=== PATIENT | female | born 1930 | race Caucasian/White ===

== ENCOUNTER 2016-04-07 14:47 | Outpatient (CLI) | payer OTHER ==
--- NOTE | 2016-04-07 16:21 | DIAGNOSTIC IMAGING REPORT ---
PROCEDURE: XR WRIST MIN 3 VIEWS - RIGHT INDICATION: FALL TECHNIQUE: Four views of the right wrist. COMPARISON: None. FINDINGS: Normal mineralization. No fractures. Normal osseous alignment. No suspicious soft-tissue calcification or radiodense foreign bodies. 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 IMPRESSION: 1. Intact right wrist.
--- NOTE | 2016-04-07 16:22 | DIAGNOSTIC IMAGING REPORT ---
PROCEDURE: XR KNEE 4 VIEWS - RIGHT INDICATION: FALL TECHNIQUE: Four views. COMPARISON: None. FINDINGS: Osseous structures and joint spaces are normal. IMPRESSION: 1. Normal right knee.
--- NOTE | 2016-04-07 16:49 | DIAGNOSTIC IMAGING REPORT ---
PROCEDURE: XR ELBOW 3 OR 4 VIEWS - RIGHT INDICATION: FALL TECHNIQUE: Four views. COMPARISON: None. FINDINGS: There is an impacted fracture involving the radial head. This is along the lateral surface of the radial head. There is also a small joint effusion. IMPRESSION: 1. Impacted radial head fracture.
== END 2016-04-07 23:00 ==
LOC: XR SRH 14:47
DX: S52.124A Nondisplaced fracture of head of right radius, initial encounter for closed fracture (principal); M25.561 Pain in right knee; M25.531 Pain in right wrist

== ENCOUNTER 2016-04-07 17:44 | Emergency (ER) | payer OTHER ==
--- NOTE | 2016-04-07 19:07 | ED CLINICAL REPORT ---
Clinical Report - Physicians/Mid Levels [facility] [address] [place] [address] 04/07/2016 17:44 [id number] Arrived- By private vehicle. Historian- patient. HISTORY OF PRESENT ILLNESS Chief Complaint: Injury to the right elbow. The injury happened today. Occurred at home. Fell (Twisted ankle while walking). Patient is experiencing moderate pain. Patient denies injury to the head or neck. No other injury. ( reports minor injury to the right knee And wrist. Reports the main area of discomfort is in the elbow. Reports no loss of consciousness, injury to the head, neck, chest, abdomen pelvis, back, or other extremities. Tetanus is up-to-date). REVIEW OF SYSTEMS The patient sustained a laceration. She has had swelling. No tingling, numbness or weakness. All systems otherwise negative, except as recorded above. PAST HISTORY See nurses notes. Medications: Albuterol Sulfate Inhalation. Furosemide Oral uncertain, daily. Allergies: No Known Drug Allergy. SOCIAL HISTORY Never smoker. Alcohol use; consumes beer occasionally. No drug use. Is a local resident. ADDITIONAL NOTES The nursing notes have been reviewed. PHYSICAL EXAM Vital Signs: 04/07/2016 18:06 BP: 159/60. HR: 105. RR: 20. O2 saturation: 89%. Temp: 99.1 F. Pain level now: 9/10. Hypertensive. Oxygen saturation normal. Appearance: Alert. Oriented X3. No acute distress. Head: Head atraumatic. Eyes: Pupils equal, round and reactive to light. Eyes normal inspection. ENT: Ears normal. Nose normal. Pharynx normal. Neck: Normal inspection. Neck supple. No decreased ROM in the neck. No vertebral tenderness. CVS: Normal heart rate and rhythm. Heart sounds normal. Pulses normal. Respiratory: No respiratory distress. Breath sounds normal. Chest nontender. Abdomen: No visible injury. Soft and nontender. Bowel sounds normal. No mass. Back: Normal inspection. No tenderness. ROM normal. Skin: Skin intact. Skin warm and dry. Normal skin color. Normal skin turgor. Extremities: (patient with ecchymosis and mild swelling to the right elbow. The patient otherwise has good range of motion with the elbow and does not have any significant pain with pronation or supination No crepitus. No bony abdomen obese. superficial skin tear to the elbow as well as wrist. The wrist has a Steri-Strips applied to the wound. Wounds are otherwise clean dry and intact. No active bleeding. No tenderness to the hand, forearm, arm, shoulder, neck. Compartments are soft. Radial pulses 2+ and symmetrical to the contralateral side. Sensation grossly intact.). PROGRESS AND PROCEDURES Course of Care: The patient is an 85-year-old female who sustained a mechanical ground-level fall earlier today for reevaluation of her right elbow. Patient was told by her clinician to return to the emergency department for elbow fracture. On examination, patient has a skin tears which do not appear to be closable with sutures or Steri-Strips. She also has a another skin tear at the wrist. Those have been closed with Steri-Strips. In regards to the fracture, I am able to appreciate a small radial head fracture and is confirmed with the radiologist read. I discussion with orthopedic surgery in regards to management of the patient's fracture. Recommended slinging and follow-up with orthopedic surgery in approximately 1.5-2 weeks. Patient is otherwise neurovascularly intact. Do not feel that this is an open fracture. No signs of compartment syndrome. Wound infection risks discussed. Patient is agreeable to the treatment plan. Discussed with patient workup, diagnosis, home care, follow-up, and return precautions. All questions answered. The patient expressed understanding of these instructions and was agreeable to them. Consult obtained. Orthopedic surgery. Disposition: Discharged. Condition: good. CLINICAL IMPRESSION 04/07/2016 18:06 BP: 159/60. HR: 105. RR: 20. O2 saturation: 89%. Temp: 99.1 F. Pain level now: 9/10. Hypertensive. Oxygen saturation normal. Closed fracture of the proximal right radius acute wound recheck right elbow and wrist. INSTRUCTIONS Warnings: GENERAL WARNINGS: Return or contact your physician immediately if your condition worsens or changes unexpectedly, if not improving as expected, or if other problems arise. Specifically return if pain, vomiting, bleeding, breathing difficulty or fever. Your Current Medications: CONTINUE TAKING THE FOLLOWING MEDICATIONS: Albuterol Sulfate Inhalation. Furosemide Oral : uncertain daily. Follow-up: Return to the emergency department as needed. Follow up with your doctor in three days. Reason for referral: recheck today's concerns. Summary of care provided to patient via paper. Screening today revealed the patient's blood pressure to be in the hypertensive range. The patient should follow up with a primary care provider for blood pressure management. Understanding of the discharge instructions verbalized by patient. Follow-up with: Follow up. Reason for referral: Contact the ortho clinic at [phone] for follow up in 1.5 - 2 weeks. Summary of care provided to patient via paper. (Electronically signed by Martin Scott Dr. 04/15/2016 1:00)
--- NOTE | 2016-04-07 19:07 | ED NURSING NOTES ---
Clinical Report - Nurses [facility] [address] [place] [address] 04/07/2016 17:44 [id number] TRIAGE Triage time 18:00 Apr 07 2016. Acuity: LEVEL 3. Chief Complaint: INJURY TO RIGHT ELBOW. Alert. MURRAY COMA SCORE: Murray Coma Scale: 15- eyes open spontaneously (4); best verbal response- oriented x 4 (5); best motor response- obeys commands (6). --18:17 Chato Turner R.N. 18:06 04/07/16. BP: 159/60. HR: 105. RR: 20. O2 saturation: 89% on room air. Temp: 99.1 F. Pain level now: 12/12. Additional comments: (R) Elbow. --18:17 Chato Turner R.N. Weight: 74.8 kg stated. Height/Length: 64 inches Per Patient. BMI: 28.3. --18:06 Chato Turner R.N. Medications Furosemide Oral uncertain, daily. --18:11 Chato Turner R.N. Albuterol Sulfate Inhalation. --18:11 Chato Turner R.N. The following entry was struck and corrected by Chato Turner R.N., 18:14 (04/07/16) Reason for correction - other(correction). <<STRICKEN ENTRY-- Furosemide Oral. --18:11 Chato Turner R.N. --END STRIKE>>. Allergies No Known Drug Allergy. --18:13 Chato Turner R.N. History Arrived by private vehicle. Historian: patient. Accompanied by family. Primary physician (Ileana). ( GLF to (R) Elbow. X-rays show fx and sent to Ed by PCP.). This occurred (about 6 hours ago). Occurred at friend's house. Mechanism of injury: fell. Treatment CHANGE CONTROL ANALYST: None. PAST MEDICAL HX: Tetanus status: unknown. Immunizations: up-to-date. SOCIAL HX: Smoker- current status unknown. Alcohol use; consumes three liquor drinks. No drug use. No infectious disease exposure. ABUSE ASSESSMENT: No report of abuse. FALL RISK ASSESSMENT: Fall risk assessment completed. No fall risk identified. NUTRITIONAL RISK ASSESSMENT: The nutritional risk assessment revealed no deficiencies. FUNCTIONAL ASSESSMENT: Functional assessment: no impairments noted. LEARNING NEEDS ASSESSMENT: The learning needs assessment revealed no barriers. SKIN INTEGRITY ASSESSMENT: Skin integrity risk assessment completed. No skin integrity risk identified. --18:17 Chato Turner R.N. ( Skin Tear on the (R) Elbow and (R) Wrist (both sites were ant wrapped at PCP's office.). --18:18 Chato Turner R.N. PROBLEMS: Blindness. COPD - Chronic Obstructive Pulmonary Disease. --18:12 Chato Turner R.N. ADDITIONAL SURGERIES: Appendectomy. Cataract Surgery. Hysterectomy. --18:13 Chato Turner R.N. Interventions ID band on patient. To treatment room. --18:17 Chato Turner R.N. PHYSICAL ASSESSMENT Ambulatory to room. GENERAL / NEURO / PSYCH: Oriented X 4. Appears in pain. EXTREMITIES: Limited ROM present. Extremity pulses are within normal limits. Right elbow: tenderness and swelling. SKIN: Skin is warm and dry. ( Skine tears on (R) elbow and (R) Wrist). --18:19 Chato Turner R.N. NURSING PROGRESS NOTES Reassurance given to the patient and patient's family. Patient identifiers checked. Call light placed in reach. Side rails up x 1. Bed placed in lowest position. Brakes of bed on. Patient ready for evaluation- chart flagged and ED physician and CRISIS MENTAL HEALTH THERAPIST notified. --18:20 Chato Turner R.N. Sling applied to right arm by experimental technician; distal pulses intact, sensation intact and motor function within normal limits. --19:03 Marcia Che, SONY Tech1 18:10. Oxygen administered by nasal cannula at 2 liters. --19:14 Chato Turenr R.N. DISPOSITION / DISCHARGE Departure time: 1919. Condition at departure: improved and stable. No learning barriers present. Discharge instructions provided and reviewed with the patient. Reviewed warnings. Reviewed medication(s). Treatments reviewed. Reviewed referrals. Activity restrictions reviewed. Patient verbalized understanding. Written instructions provided in Gibral[place]. The patient was discharged by the physician preschool assistant teacher. She was discharged home and accompanied by roustabout. She left the Emergency Department ambulatory and via private vehicle. Production Tool Engineer driving. --19:23 James Barraza R.N. 19:22 04/07/16. BP: 150/66. HR: 88. RR: 18. O2 saturation: 98%. Temp: 98 F. Pain level now 0/10. --19:23 James Barraza R.N. Locked/Released at 04/07/2016 19:24 by James Barraza R.N.
--- NOTE | 2016-04-07 19:07 | ED NURSING NOTES ---
Clinical Report - Nurses [facility] [address] [place] [address] 04/07/2016 17:44 [id number] TRI[facility] Triage time 18:00 Apr 07 2016. Acuity: LEVEL 3. Chief Complaint: INJURY TO RIGHT ELBOW. Alert. MURRAY COMA SCORE: Murray Coma Scale: 15- eyes open spontaneously (4); best verbal response- oriented x 4 (5); best motor response- obeys commands (6). --18:17 Chato Turner R.N. 18:06 04/07/16. BP: 159/60. HR: 105. RR: 20. O2 saturation: 89% on room air. Temp: 99.1 F. Pain level now: 12/12. Additional comments: (R) Elbow. --18:17 Chato Turner R.N. Weight: 74.8 kg stated. Height/Length: 64 inches Per Patient. BMI: 28.3. --18:06 Chato Turner R.N. Medications Furosemide Oral uncertain, daily. --18:11 Chato Turner R.N. Albuterol Sulfate Inhalation. --18:11 Chato Turner R.N. The following entry was struck and corrected by Chato Turner R.N., 18:14 (04/07/16) Reason for correction - other(correction). <<STRICKEN ENTRY-- Furosemide Oral. --18:11 Chato Turner R.N. --END STRIKE>>. Allergies No Known Drug Allergy. --18:13 Chato Turner R.N. History Arrived by private vehicle. Historian: patient. Accompanied by family. Primary physician (Ileana). ( GLF to (R) Elbow. X-rays show fx and sent to Ed by PCP.). This occurred (about 6 hours ago). Occurred at friend's house. Mechanism of injury: fell. Treatment DESIGN TECHNOLOGY PROFESSOR: None. PAST MEDICAL HX: Tetanus status: unknown. Immunizations: up-to-date. SOCIAL HX: Smoker- current status unknown. Alcohol use; consumes three liquor drinks. No drug use. No infectious disease exposure. ABUSE ASSESSMENT: No report of abuse. FALL RISK ASSESSMENT: Fall risk assessment completed. No fall risk identified. NUTRITIONAL RISK ASSESSMENT: The nutritional risk assessment revealed no deficiencies. FUNCTIONAL ASSESSMENT: Functional assessment: no impairments noted. LEARNING NEEDS ASSESSMENT: The learning needs assessment revealed no barriers. SKIN INTEGRITY ASSESSMENT: Skin integrity risk assessment completed. No skin integrity risk identified. --18:17 Chato Turner R.N. ( Skin Tear on the (R) Elbow and (R) Wrist (both sites were ant wrapped at PCP's office.). --18:18 Chato Turner R.N. PROBLEMS: Blindness. COPD - Chronic Obstructive Pulmonary Disease. --18:12 Chato Turner R.N. ADDITIONAL SURGERIES: Appendectomy. Cataract Surgery. Hysterectomy. --18:13 Chato Turner R.N. Interventions ID band on patient. To treatment room. --18:17 Chato Turner R.N. PHYSICAL ASSESSMENT Ambulatory to room. GENERAL / NEURO / PSYCH: Oriented X 4. Appears in pain. EXTREMITIES: Limited ROM present. Extremity pulses are within normal limits. Right elbow: tenderness and swelling. SKIN: Skin is warm and dry. ( Skine tears on (R) elbow and (R) Wrist). --18:19 Chato Turner R.N. NURSING PROGRESS NOTES Reassurance given to the patient and patient's family. Patient identifiers checked. Call light placed in reach. Side rails up x 1. Bed placed in lowest position. Brakes of bed on. Patient ready for evaluation- chart flagged and ED physician and TSO notified. --18:20 Chato Turner R.N. Sling applied to right arm by county program technician; distal pulses intact, sensation intact and motor function within normal limits. --19:03 Marcia Che, SONY Tech1 18:10. Oxygen administered by nasal cannula at 2 liters. --19:14 Chato Turner R.N. DISPOSITION / DISCHARGE Departure time: 1919. Condition at departure: improved and stable. No learning barriers present. Discharge instructions provided and reviewed with the patient. Reviewed warnings. Reviewed medication(s). Treatments reviewed. Reviewed referrals. Activity restrictions reviewed. Patient verbalized understanding. Written instructions provided in [place]ine[place]. The patient was discharged by the physician chiropractic assistant. She was discharged home and accompanied by java j2ee technical lead. She left the Emergency Department ambulatory and via private vehicle. Detention Deputy driving. --19:23 James Barraza R.N. 19:22 04/07/16. BP: 150/66. HR: 88. RR: 18. O2 saturation: 98%. Temp: 98 F. Pain level now 0/10. --19:23 James Barraza R.N. Locked/Released at 04/07/2016 19:24 by James Barraza R.N.
--- NOTE | 2016-04-07 19:07 | ED ORDER SUMMARY ---
..... Patient: FITO VILLARREAL OrderSheet [facility] VisitID: [id number] [address] [place] [address] 85y, F Registration Date/Time: 04/07/2016 ORDER SHEET Weight: 74.8 kg (stated) Allergies: No Known Drug Allergy GENERAL ORDERS: Consult - Ortho (18:35 04/07/2016 Lexa Dunne) (18:57 NHouse ER Tech1) Sling - arm (RUE) (18:50 04/07/2016 Lexa Dunne) (18:57 LNations ER Tech1) MEDICATION ORDERS: IV FLUIDS: ORDER SHEET NOTES: [Electronically signed by James Barraza R.N. (19:24 04/07/2016)] [Electronically signed by Martin Scott Dr. (01:00 04/15/2016)] [Electronically locked/signed by James Barraza R.N. (19:24 04/07/2016)]
--- NOTE | 2016-04-07 19:07 | ED ORDER SUMMARY ---
..... Patient: FITO VILLARREAL OrderSheet [facility] VisitID: [id number] [address] [place] [address] 85y, F Registration Date/Time: 04/07/2016 ORDER SHEET Weight: 74.8 kg (stated) Allergies: No Known Drug Allergy GENERAL ORDERS: Consult - Ortho (18:35 04/07/2016 Lexa Dunne) (18:57 NHouse ER Tech1) Sling - arm (RUE) (18:50 04/07/2016 Lexa Dunne) (18:57 LNations ER Tech1) MEDICATION ORDERS: IV FLUIDS: ORDER SHEET NOTES: [Electronically signed by James Barraza R.N. (19:24 04/07/2016)] [Electronically signed by Martin Scott Dr. (01:00 04/15/2016)] [Electronically locked/signed by James Barraza R.N. (19:24 04/07/2016)]
--- NOTE | 2016-04-15 01:01 | ED DISCHARGE INSTRUCTIONS ---
Patient: FITO VILLARREAL General Instructions [facility] VisitID: [id number] [place] [address] 85y, F Registration Date/Time: 04/07/2016 04/07/2016 18:06 BP: 159/60. HR: 105. RR: 20. O2 saturation: 89%. Temp: 99.1 F. Pain level now: 10. Hypertensive. Oxygen saturation normal. Closed fracture of the proximal right radius acute wound recheck right elbow and wrist. INSTRUCTIONS Warnings: GENERAL WARNINGS: Return or contact your physician immediately if your condition worsens or changes unexpectedly, if not improving as expected, or if other problems arise. Specifically return if pain, vomiting, bleeding, breathing difficulty or fever. Your Current Medications: CONTINUE TAKING THE FOLLOWING MEDICATIONS: Albuterol Sulfate Inhalation. Furosemide Oral : uncertain daily. Follow-up: Return to the emergency department as needed. Follow up with your doctor in three days. Reason for referral: recheck today's concerns. Summary of care provided to patient via paper. Screening today revealed the patient's blood pressure to be in the hypertensive range. The patient should follow up with a primary care provider for blood pressure management. Understanding of the discharge instructions verbalized by patient. Follow-up with: Follow up. Reason for referral: Contact the ortho clinic at [phone] for follow up in 1.5 - 2 weeks. Summary of care provided to patient via paper. ADDITIONAL INFORMATION Fracture: Radial Head You have a break (fracture) at the elbow (radial head). This may be a small crack in the bone; or a major break with the broken parts pushed out of position. This fracture usually takes 3-6 weeks to heal. In most cases, initial treatment is with a splint and sling, or a sling alone. Severe fractures may require putting the bone back in place. Sometimes surgery is required. Home Care: Keep your arm elevated to reduce pain and swelling. When sitting or lying down elevate your arm above the level of your heart. You can do this by placing your arm on a pillow that rests on your chest or on a pillow at your side. This is most important during the first 48 hours after injury. Apply an ice pack (ice cubes in a plastic bag, wrapped in a towel) over the injured area for 20 minutes every 1-2 hours the first day. You can place the ice pack inside the sling and directly over the splint. Continue with ice packs 3-4 times a day for the next two days, then as needed for the relief of pain and swelling. If you were given a sling and splint, leave it in place for the time advised. Keep the splint completely dry at all times. Bathe with your splint out of the water, protected with a large plastic bag, rubber-banded at the top end. If a fiberglass splint/cast gets wet, you can dry it with a hair-dryer. If you were given a sling only, wear it for the first week. Unless told otherwise, gradually begin range of motion exercises, after the first week, or as advised by your doctor. You may use acetaminophen (Tylenol) or ibuprofen (Motrin, Advil) to control pain, unless another pain medicine was prescribed. [NOTE: If you have chronic liver or kidney disease or ever had a stomach ulcer or GI bleeding, talk with your doctor before using these medicines.] Follow Up with your doctor in one week, or as advised by our staff, to be sure the bone is healing properly. An elbow joint will become stiff if immobile for too long. Ask your doctor when to begin range of motion exercises to prevent the elbow from getting stiff. [NOTE: If X-rays were taken, they will be reviewed by a radiologist. You will be notified if there are any new findings that may affect your care.] Get Prompt Medical Attention if any of the following occur: The plaster splint becomes wet or soft The fiberglass splint remains wet for more than 24 hours Increased tightness or pain in the elbow Fingers become swollen, cold, blue, numb or tingly You have been given the following additional information: Radial Head Fracture (Electronically signed by Martin Scott Dr. 04/15/2016 1:00)
--- NOTE | 2016-04-15 01:01 | ED MAR SUMMARY ---
..... Medication Administration Record [facility] [address] [place], [place] [id number] Patient: FITO VILLARREAL Visit ID: [id number] 85y, F Weight: 74.8 kg Height/Length: 64 in BMI: 28.3 ALLERGIES: No Known Drug Allergy
--- NOTE | 2016-04-15 01:01 | ED MED RECONCILIATION SUMMARY ---
Patient: FITO VILLARREAL Medication Reconciliation Report [facility] VisitID: [id number] [address] [place] [address] 85y, F Registration Date/Time: 04/07/2016 Weight: 74.8 kg Height/Length: 64 in. BMI: 28.3 ALLERGIES: No Known Drug Allergy The patient's Home Medications are listed below: CONTINUE TAKING THE FOLLOWING MEDICATIONS: Albuterol Sulfate Inhalation Furosemide Oral uncertain, daily The source(s) of the original Home Medication information: Not obtained. The following Medications were given to the patient in the Emergency Department: None. The following Medications were prescribed to the patient: None.
--- NOTE | 2016-04-15 01:01 | ED MED RECONCILIATION SUMMARY ---
Patient: FITO VILLARREAL Medication Reconciliation Report [facility] VisitID: [id number] [address] [place] [place] [address] 85y, F Registration Date/Time: 04/07/2016 Weight: 74.8 kg Height/Length: 64 in. BMI: 28.3 ALLERGIES: No Known Drug Allergy The patient's Home Medications are listed below: CONTINUE TAKING THE FOLLOWING MEDICATIONS: Albuterol Sulfate Inhalation Furosemide Oral uncertain, daily The source(s) of the original Home Medication information: Not obtained. The following Medications were given to the patient in the Emergency Department: None. The following Medications were prescribed to the patient: None.
--- NOTE | 2016-04-15 01:01 | ED MAR SUMMARY ---
..... Medication Administration Record [facility] [address] [place] [place], [place] [id number] Patient: FITO VILLARREAL Visit ID: [id number] 85y, F Weight: 74.8 kg Height/Length: 64 in BMI: 28.3 ALLERGIES: No Known Drug Allergy
== END 2016-04-07 19:20 | disposition home or self-care (01) ==
LOC: ED SRH 17:44
DX: S52.121A Displaced fracture of head of right radius, initial encounter for closed fracture (principal); W18.30XA Fall on same level, unspecified, initial encounter; Y93.01 Activity, walking, marching and hiking; Y92.009 Unspecified place in unspecified non-institutional (private) residence as the place of occurrence of the external cause; Y99.9 Unspecified external cause status